=== PATIENT | female | born 1980 | race Caucasian/White ===

== ENCOUNTER 2017-01-09 23:13 | Emergency (ER) | payer MEDICAID, OTHER ==
[2017-01-09 23:25] VITALS: BP 99/49
[2017-01-09] MEDS ORDERED: Lactated Ringers 1,000 ML IV ONE (23:32)
[2017-01-09] MEDS ORDERED: Sodium Chloride 0.9% 10 ML Syringe FLUSH PRN (23:32)
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
[2017-01-10] MEDS ORDERED: Potassium Chloride 10 MEQ in Premix Bag 1 BAG IV SCH ×2 (00:45→02:00)
[2017-01-10] MEDS ORDERED: Potassium Chloride 10 MEQ Tab.ER PO ONE (02:41)
== END 2017-01-10 02:56 | disposition home or self-care (01) ==
LOC: JD.ED 23:13
DX: F10.129 Alcohol abuse with intoxication, unspecified (principal); F17.200 Nicotine dependence, unspecified, uncomplicated
CPT/HCPCS: 36415; 80053; 80306; 81001; 83735; 85025; 87086; 87088; 87186; 93005; 96361; 96365; 99285; A9270; G0480; J3480; J7050; J7120; 99284

== ENCOUNTER 2017-06-17 00:39 | Emergency (ER) | payer MEDICAID ==
[2017-06-17 01:12] VITALS: BP 134/80
--- NOTE | 2017-06-17 01:16 | EDM.PDOC ---
ED HPI GENERAL MEDICAL PROBLEM - General Chief Complaint: Lower Extremity Injury/Pain Stated Complaint: POSS ANKLE INJURY Time Seen by Provider: 06/17/17 01:15 Source of Information: Reports: Patient History Limitations: Reports: No Limitations - History of Present Illness INITIAL COMMENTS - FREE TEXT/NARRATIVE: 37-year-old female attends the ED with an acute inversion injury to her right ankle. These her and her were out dancing and drinking at [employer] this evening when she inadvertently missed 2 stairs down to the dance floor. This resulted in significant inversion injury to her right ankle. She can barely put any weight on the heel to weight-bear. Injury occurred half an hour before arrival in the ED. She denies any other injuries. Radiates up towards her knee however. 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 (see below) (9.) Right Ankle Pain Score (Numeric/FACES): 7 - Related Data Allergies Allergy/AdvReac Type Severity Reaction Status Date / Time No Known Allergies Allergy Verified 06/17/17 01:11 Home Meds: Home Meds Acetaminophen/HYDROcodone [[place] 325-5 MG] 1 tab PO Q6H #5 tablet 06/17/17 [Rx] ClonazePAM [KlonoPIN] 1 mg PO DAILY PRN 06/17/17 [History] Diclofenac Sodium [Voltaren] 75 mg PO DAILY 06/17/17 [History] Orphenadrine [Norflex] 100 mg PO DAILY 06/17/17 [History] Pregabalin [Lyrica] 150 mg PO TID 06/17/17 [History] Past Medical History - Past Health History Medical/Surgical History: Denies Medical/Surgical History Other Musculoskeletal History: cervical spine stenosis Neurological History: Reports: Other (See Below) (Chronic insomnia) Other Hematologic History: stated has some anemia with Social & Family History - Family History Family Medical History: Unobtainable - Tobacco Use Smoking Status *Q: Light Tobacco Smoker Years of Tobacco use: 20 Packs/Tins Daily: 0.5 Used Tobacco, but Quit: No Month Tobacco Last Used: November Second Hand Smoke Exposure: No - Alcohol Use Days Per Week of Alcohol Use: 0 - Recreational Drug Use Recreational Drug Use: No - Living Situation & Occupation Living situation: Reports: Single Occupation: Unemployed Review of Systems - Review of Systems Review Of Systems: See Below Constitutional: Reports: No Symptoms Eyes: Reports: No Symptoms Ears: Reports: No Symptoms Nose: Reports: No Symptoms Mouth/Throat: Reports: No Symptoms Respiratory: Reports: No Symptoms Cardiovascular: Reports: No Symptoms GI/Abdominal: Reports: No Symptoms ED EXAM, GENERAL - Physical Exam Exam: See Below Exam Limited By: No Limitations General Appearance: Alert, WD/WN, Moderate Distress Peripheral Pulses: 2+: Posterior Tibial (L), Posterior Tibial (R), Dorsalis Pedis (L), Dorsalis Pedis (R) Extremities: Other (Examination was mostly confined to her right lower extremity. There is no injury to the knee. There is no injury to the proximal neck of the fibula. Significant pain in her ankle with compression of mid shaft tib-fib. No pain at on compression of the metatarsals or particular the fifth metatarsal head. There is marked swelling of the lateral malleolus and surrounding tissues dorsally. No pain on compression of the medial malleoli and the deltoid ligament.) Neurological: Alert, Oriented, CN II-XII Intact, Normal Cognition Psychiatric: Normal Affect, Normal Mood Skin Exam: Dry, Intact, Normal Color Course - Vital Signs Last Recorded V/S: Last Vital Signs Temp 36.6 C 06/17/17 01:08 Pulse 92 06/17/17 01:08 Resp 16 06/17/17 01:08 BP 134/80 06/17/17 01:08 Pulse Ox 98 06/17/17 01:08 - Orders/Labs/Meds Orders: Active Orders 24 hr Category Date Time Status Ankle Min 3V Rt [CR] Stat Exams 06/17/17 01:15 Taken Tibia Fibula Rt [CR] Stat Exams 06/17/17 01:15 Taken - Radiology Interpretation Free Text/Narrative:: 37-year-old female presents the ED with an acute inversion injury to her right ankle. 2 stairs while at on these going to the dance floor. There is marked swelling of the lateral malleolus and she can barely weight-bear. Plan x-ray of the tib-fib and ankle to be done. - Re-Assessments/Exams Free Text/Narrative Re-Assessment/Exam: 06/17/17 02:00 x-rays of the tib-fib and right ankle are negative for fractures. Patient was placed in an Sergey wrap and will have a stirrup splint applied to the ankle. She found this actually quite comfortable and was able to navigate fairly well without crutches. She will use Aleve 2 tablets every 8 hours for pain relief. Did provide her with 5 tablets of Percocet through the ED 1 tablet every 6 hours as needed for pain relief not controlled by leave alone. Up with personal care physician if not completely back to normal in 14 days time. Departure - Departure Time of Disposition: 01:51 Disposition: Home, Self-Care 01 Condition: Fair Clinical Impression: Sprain of right ankle Qualifiers: Encounter type: initial encounter Involved ligament of ankle: calcaneofibular ligament Qualified Code(s): S93.411A - Sprain of calcaneofibular ligament of right ankle, initial encounter - Discharge Information Prescriptions: Acetaminophen/HYDROcodone [[place] 325-5 MG] 1 tab PO Q6H #5 tablet Instructions: Ankle Sprain, [id number] Referrals: Nakita Stovall NP [Primary Care Provider] - Forms: ED Department Discharge Additional Instructions: Evaluation in the emergency room tonight in regards to acute inversion injury to her right ankle at occurred when you missed a stair or 2. Significant swelling over the lateral malleolus appreciated due to ligament strain. X-rays of the tib-fib and ankle reveal no broken bones. Ankle ligaments are stable indicating no tear of the ligaments but overstretching of the ligaments. Treatment is Sergey wrap on during the day and off at night although I would leave it on all night tonight. Ideally ice pack to the area for one half hour out of every 4 hours for 2 days to reduce the swelling After this may put heat on the area. Suggest Motrin 600 mg every 6 hours or Aleve 2 tablets every 8 hours to reduce pain and inflammation. May use [place] tablet 5 mg 1 tablet every 6 hours as necessary for pain relief not controlled by Motrin alone. Just use of Aircast splint to aid ambulation for the next 10-12 days. Follow-up with personal physician if not completely back to normal in 14 days time - My Orders Last 24 Hours: My Active Orders 06/17/17 01:15 Ankle Min 3V Rt [CR] Stat Tibia Fibula Rt [CR] Stat - Assessment/Plan Last 24 Hours: My Active Orders 06/17/17 01:15 Ankle Min 3V Rt [CR] Stat Tibia Fibula Rt [CR] Stat
[2017-06-17] MEDS ORDERED: Acetaminophen/HYDROcodone 325-5 MG Tab ONE (01:54)
--- NOTE | 2017-06-18 08:57 | CR ---
Right ankle: Four views of the right ankle were obtained. Comparison: No prior ankle study. Ankle mortise is symmetric. No fracture, dislocation or other bony abnormality is identified. Impression: 1. No abnormality is identified on right ankle exam. Diagnostic code #1
--- NOTE | 2017-06-18 12:16 | CR ---
Right tibia and fibula: AP and lateral views of the right tibia and fibula were obtained. Comparison: No previous study. No fracture or other abnormality is seen. Impression: 1. No abnormality is identified on two-view right tibia and fibula study. Diagnostic code #1
== END 2017-06-17 02:23 | disposition home or self-care (01) ==
LOC: JD.ED 00:39
DX: S93.411A Sprain of calcaneofibular ligament of right ankle, initial encounter (principal); F17.210 Nicotine dependence, cigarettes, uncomplicated; Z79.899 Other long term (current) drug therapy; X50.0XXA Overexertion from strenuous movement or load, initial encounter
CPT/HCPCS: 73590; 73610; 99283; A9270

== ENCOUNTER 2019-09-27 20:14 | Emergency (ER) | payer SELFPAY ==
[2019-09-27 20:23] VITALS: BP 143/92; PULSE 63
[2019-09-27] MEDS ORDERED: Sodium Chloride 0.9% 10 ML Syringe FLUSH PRN (20:23)
[2019-09-27] MEDS ORDERED: Ketorolac 15 MG/ML SDV IVPUSH ONE (20:23)
--- NOTE | 2019-09-27 20:25 | EDM.PDOC ---
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 Patient reports that symptoms started days ago and progressively worsened since. Patient reports that this reminds her of her previous episode of hemorrhagic cyst or ectopic . No nausea no vomiting no fever no chills no shortness of breath. Patient reports her LMP was in July of this year Left Lower Pelvic Pain Score (Numeric/FACES): 10 - Related Data Allergies Allergy/AdvReac Type Severity Reaction Status Date / Time No Known Allergies Allergy Verified 09/27/19 20:19 Home Meds: Home Meds . [No Known Home Meds] 09/27/19 [History] Past Medical History - Past Health History Medical/Surgical History: Denies Medical/Surgical History Other Musculoskeletal History: cervical spine stenosis Neurological History: Reports: Other (See Below) (Chronic insomnia) Other Hematologic History: stated has some anemia with Social & Family History - Family History Family Medical History: Unobtainable - Caffeine Use Caffeine Use: Reports: Coffee - Living Situation & Occupation Living situation: Reports: Single Occupation: Unemployed ED ROS GENERAL - Review of Systems Review Of Systems: See Below Constitutional: Denies: Fever, Chills GI/Abdominal: Reports: Abdominal Pain. Denies: Diarrhea, Nausea, Vomiting ED EXAM, GI/ABD - Physical Exam Exam: See Below Exam Limited By: No Limitations General Appearance: Alert, WD/WN, Mild Distress Neck: Normal Inspection, Supple, Non-Tender, Full Range of Motion Respiratory/Chest: No Respiratory Distress, Lungs Clear, Normal Breath Sounds, No Accessory Muscle Use, Chest Non-Tender Cardiovascular: Normal Peripheral Pulses, Regular Rate, Rhythm, No Edema, No Gallop, No JVD, No Murmur, No Rub GI/Abdominal Exam: Normal Bowel Sounds, Soft, Tender (Mild left lower quadrant) Back Exam: Normal Inspection, Full Range of Motion, NT Extremities: Normal Inspection, Normal Range of Motion, Non-Tender, No Pedal Edema, Normal Capillary Refill Neurological: Alert Skin Exam: Warm, Dry, No Rash Course - Vital Signs Last Recorded V/S: Last Vital Signs Temp 97.9 F 09/27/19 20:19 Pulse 63 09/27/19 20:19 Resp 16 09/27/19 20:19 BP 143/92 H 09/27/19 20:19 Pulse Ox 100 09/27/19 20:19 - Orders/Labs/Meds Orders: Active Orders 24 hr Category Date Time Status CULTURE URINE [RM] Stat Lab 09/27/19 20:57 Received UA W/MICROSCOPIC [URIN] Stat Lab 09/27/19 20:57 Results Sodium Chloride 0.9% [Saline Flush] Med 09/27/19 20:23 Active 10 ml FLUSH ASDIRECTED PRN Saline Lock Insert [OM.PC] Stat Oth 09/27/19 20:23 Ordered Medication Orders Sodium Chloride (Saline Flush) 10 ml FLUSH ASDIRECTED PRN PRN Reason: Keep Vein Open Last Admin: 09/27/19 20:37 Dose: 10 ml Labs: Laboratory Tests 09/27/19 09/27/19 09/27/19 Range/Units 20:45 20:45 20:45 WBC 6.56 (3.98-10.04) K/mm3 RBC 3.78 L (3.98-5.22) M/mm3 Hgb 11.5 (11.2-15.7) gm/dl Hct 34.8 (34.1-44.9) % MCV 92.1 D (79.4-94.8) fl MCH 30.4 (25.6-32.2) pg MCHC 33.0 (32.2-35.5) g/dl RDW Std Deviation 43.3 (36.4-46.3) fL Plt Count 365 D (182-369) K/mm3 MPV 9.5 (9.4-12.3) fl Neut % (Auto) 39.9 (34.0-71.1) % Lymph % (Auto) 50.8 (19.3-51.7) % [place] % (Auto) 5.9 (4.7-12.5) % Eos % (Auto) 2.0 (0.7-5.8) Baso % (Auto) 1.2 (0.1-1.2) % Neut # (Auto) 2.62 (1.56-6.13) K/mm3 Lymph # (Auto) 3.33 (1.18-3.74) K/mm3 [place] # (Auto) 0.39 H (0.24-0.36) K/mm3 Eos # (Auto) 0.13 (0.04-0.36) K/mm3 Baso # (Auto) 0.08 (0.01-0.08) K/mm3 Sodium 143 (136-145) mEq/L Potassium 3.9 (3.5-5.1) mEq/L Chloride 106 (98-107) mEq/L Carbon Dioxide 27 (21-32) mEq/L Anion Gap 13.9 (5-15) BUN 12 (7-18) mg/dL Creatinine 0.6 (0.55-1.02) mg/dL Est Cr Clr Drug Dosing 114.91 mL/min Estimated GFR (MDRD) > 60 (>60) mL/min BUN/Creatinine Ratio 20.0 H (14-18) Glucose 102 (74-106) mg/dL Calcium 8.7 (8.5-10.1) mg/dL Total Bilirubin 0.3 (0.2-1.0) mg/dL AST 15 (15-37) U/L ALT 28 (14-59) U/L Alkaline Phosphatase 55 (46-116) U/L Total Protein 6.5 (6.4-8.2) g/dl Albumin 3.9 (3.4-5.0) g/dl Globulin 2.6 gm/dL Albumin/Globulin Ratio 1.5 (1-2) HCG, Qual Negative (NEGATIVE) Urine Color (Yellow) Urine Appearance (Clear) Urine pH (5.0-8.0) Ur Specific [place] (1.005-1.030) Urine Protein (Negative) Urine Glucose (UA) (Negative) Urine Ketones (Negative) Urine Occult Blood (Negative) Urine Nitrite (Negative) Urine Bilirubin (Negative) Urine Urobilinogen (0.2-1.0) Ur Leukocyte Esterase (Negative) 09/27/19 Range/Units 20:57 WBC (3.98-10.04) K/mm3 RBC (3.98-5.22) M/mm3 Hgb (11.2-15.7) gm/dl Hct (34.1-44.9) % MCV (79.4-94.8) fl MCH (25.6-32.2) pg MCHC (32.2-35.5) g/dl RDW Std Deviation (36.4-46.3) fL Plt Count (182-369) K/mm3 MPV (9.4-12.3) fl Neut % (Auto) (34.0-71.1) % Lymph % (Auto) (19.3-51.7) % [place] % (Auto) (4.7-12.5) % Eos % (Auto) (0.7-5.8) Baso % (Auto) (0.1-1.2) % Neut # (Auto) (1.56-6.13) K/mm3 Lymph # (Auto) (1.18-3.74) K/mm3 [place] # (Auto) (0.24-0.36) K/mm3 Eos # (Auto) (0.04-0.36) K/mm3 Baso # (Auto) (0.01-0.08) K/mm3 Sodium (136-145) mEq/L Potassium (3.5-5.1) mEq/L Chloride (98-107) mEq/L Carbon Dioxide (21-32) mEq/L Anion Gap (5-15) BUN (7-18) mg/dL Creatinine (0.55-1.02) mg/dL Est Cr Clr Drug Dosing mL/min Estimated GFR (MDRD) (>60) mL/min BUN/Creatinine Ratio (14-18) Glucose (74-106) mg/dL Calcium (8.5-10.1) mg/dL Total Bilirubin (0.2-1.0) mg/dL AST (15-37) U/L ALT (14-59) U/L Alkaline Phosphatase (46-116) U/L Total Protein (6.4-8.2) g/dl Albumin (3.4-5.0) g/dl Globulin gm/dL Albumin/Globulin Ratio (1-2) HCG, Qual (NEGATIVE) Urine Color Yellow (Yellow) Urine Appearance Clear (Clear) Urine pH 7.0 (5.0-8.0) Ur Specific [place] 1.020 (1.005-1.030) Urine Protein Negative (Negative) Urine Glucose (UA) Negative (Negative) Urine Ketones Negative (Negative) Urine Occult Blood Trace-intact H (Negative) Urine Nitrite Negative (Negative) Urine Bilirubin Negative (Negative) Urine Urobilinogen 0.2 (0.2-1.0) Ur Leukocyte Esterase Trace H (Negative) Meds: Medications Generic Name Dose Route Start Last Admin Trade Name Filibertoq PRN Reason Stop Dose Admin Sodium Chloride 10 ml 09/27/19 20:23 09/27/19 20:37 Saline Flush FLUSH 10 ml ASDIRECTED PRN Administration Keep Vein Open Discontinued Medications Generic Name Dose Route Start Last Admin Trade Name Alexi PRN Reason Stop Dose Admin Ketorolac Tromethamine 10 mg 09/27/19 20:23 09/27/19 20:35 Toradol IVPUSH 09/27/19 20:24 10 mg ONETIME ONE Administration Ondansetron HCl 4 mg 09/27/19 20:40 09/27/19 20:47 Zofran IVPUSH 09/27/19 20:41 4 mg ONETIME ONE Administration - Re-Assessments/Exams Free Text/Narrative Re-Assessment/Exam: 09/27/19 21:26 Evidence of acute process no need for further diagnostic testing at this time we will discharge to long term Departure - Departure Time of Disposition: 21:26 Disposition: Home, Self-Care 01 Clinical Impression: Left lower quadrant pain - Discharge Information Forms: ED Department Discharge Additional Instructions: Home, rest, return as needed for worsening condition Sepsis Event Note - Evaluation Sepsis Screening Result: No Definite Risk - Focused Exam Vital Signs: Vital Signs Temp Pulse Resp BP Pulse Ox 09/27/19 20:19 97.9 F 63 16 143/92 H 100 Date Exam was Performed: 09/27/19 Time Exam was Performed: 21:26 - My Orders Last 24 Hours: My Active Orders 09/27/19 20:23 Sodium Chloride 0.9% [Saline Flush] 10 ml FLUSH ASDIRECTED PRN Saline Lock Insert [OM.PC] Stat 09/27/19 20:57 CULTURE URINE [RM] Stat UA W/MICROSCOPIC [URIN] Stat - Assessment/Plan Last 24 Hours: My Active Orders 09/27/19 20:23 Sodium Chloride 0.9% [Saline Flush] 10 ml FLUSH ASDIRECTED PRN Saline Lock Insert [OM.PC] Stat 09/27/19 20:57 CULTURE URINE [RM] Stat UA W/MICROSCOPIC [URIN] Stat
[2019-09-27] MEDS ORDERED: Ondansetron 4 MG/2 ML SDV IVPUSH ONE (20:40)
== END 2019-09-27 21:40 | disposition home or self-care (01) ==
LOC: JD.ED 20:14
DX: R10.32 Left lower quadrant pain (principal)
CPT/HCPCS: 36415; 80053; 81001; 84703; 85025; 87086; 96374; 96375; 99284; J1885; J2405

== ENCOUNTER 2019-11-02 19:37 | Emergency (ER) | payer MEDICAID, OTHER ==
[2019-11-02 19:46] VITALS: BP 137/83; PULSE 93
--- NOTE | 2019-11-02 19:56 | EDM.PDOC ---
ED HPI GENERAL MEDICAL PROBLEM - General Chief Complaint: Chest Pain Stated Complaint: CHEST PAIN Time Seen by Provider: 11/02/19 19:47 Source of Information: Reports: Patient, RN Notes Reviewed - History of Present Illness INITIAL COMMENTS - FREE TEXT/NARRATIVE: 39-year-old female comes in with chest pain. This started about 30-40 minutes ago sudden onset of pressure type sensation upper mid abdomen radiating to lower chest. She does have history of irritable bowel. She has had a fair amount of abdominal cramping and some intermittent diarrhea earlier today. There has been no nausea or vomiting. She does not feel short of breath. The pressure discomfort now is somewhat better but still present. No radiation to the shoulders arms neck or back. No known history of heart or lung disease other than current smoking history. Right Upper Chest Pain Score (Numeric/FACES): 9 - Related Data Allergies Allergy/AdvReac Type Severity Reaction Status Date / Time No Known Allergies Allergy Verified 11/02/19 19:46 Home Meds: Home Meds . [No Known Home Meds] 09/27/19 [History] Past Medical History - Past Health History Medical/Surgical History: Denies Medical/Surgical History HEENT History: Reports: Hard of Hearing, Other (See Below) Other HEENT History: Retinal Dystrophy. 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: Reports: Ectopic , Endometriosis, Polycystic Ovaries, Musculoskeletal History: Reports: Neck Pain, Chronic Other Musculoskeletal History: cervical spine stenosis Neurological History: Reports: Brain Injury, Concussion, Head Trauma, Neuropathy , Peripheral Psychiatric History: Reports: ADD, ADHD, PTSD, Other (See Below) Other Psychiatric History: Borderline Personality Disorder Endocrine/Metabolic History: Reports: None Other Hematologic History: stated has some anemia with Immunologic History: Reports: None Oncologic (Cancer) History: Reports: None Dermatologic History: Reports: None - Infectious Disease History Infectious Disease History: Reports: None - Past Surgical History HEENT Surgical History: Reports: Tonsillectomy GI Surgical History: Reports: Appendectomy Other GI Surgeries/Procedures: 4 abdominal surgeries for endometriosis and cyst ruptures. Female Surgical History: Reports: Tubal Ligation Social & Family History - Family History Family Medical History: Unobtainable - Tobacco Use Smoking Status *Q: Current Every Day Smoker Years of Tobacco use: 20 Packs/Tins Daily: 1 - Caffeine Use Caffeine Use: Reports: Coffee - Recreational Drug Use Recreational Drug Use: No - Living Situation & Occupation Living situation: Reports: Single Occupation: Unemployed ED ROS GENERAL - Review of Systems Review Of Systems: See Below Constitutional: Denies: Fever, Chills, Diaphoresis HEENT: Denies: Sinus Problem, Throat Pain Respiratory: Denies: Shortness of Breath, Wheezing, Cough Cardiovascular: Reports: Chest Pain GI/Abdominal: Reports: Abdominal Pain (Upper midabdominal and prior intermittent generalized cramping), Diarrhea. Denies: Nausea, Vomiting Musculoskeletal: Denies: Neck Pain, Shoulder Pain, Arm Pain, Back Pain Skin: Reports: No Symptoms Neurological: Reports: Paresthesia ED EXAM, GENERAL - Physical Exam Exam: See Below General Appearance: Alert, Mild Distress Eye Exam: Bilateral Eye: PERRL Head: Atraumatic Neck: Supple Respiratory/Chest: No Respiratory Distress, Lungs Clear, Normal Breath Sounds Cardiovascular: Regular Rate, Rhythm GI/Abdominal: Soft, Non-Tender Extremities: Normal Inspection, Normal Range of Motion Neurological: Alert, Oriented, No Motor/Sensory Deficits Skin Exam: Warm, Dry, Normal Color EKG INTERPRETATION EKG Date: 11/02/19 Rhythm: NSR [place]: Normal P-Wave: Present QRS: Normal ST-T: Normal Course - Vital Signs Last Recorded V/S: Last Vital Signs Temp 98.4 F 11/02/19 19:43 Pulse 93 11/02/19 19:43 Resp 16 11/02/19 19:43 BP 137/83 11/02/19 19:43 Pulse Ox 99 11/02/19 19:43 - Orders/Labs/Meds Orders: Active Orders 24 hr Category Date Time Status EKG 12 Lead [EKG Documentation Completion] [RC] STAT Care 11/02/19 20:06 Active Meds: Medications Discontinued Medications Generic Name Dose Route Start Last Admin Trade Name Freq PRN Reason Stop Dose Admin Al Hydroxide/Mg Hydroxide 30 0 ml 11/02/19 20:06 11/02/19 20:12 ml/ Lidocaine HCl 15 ml PO 11/02/19 20:07 45 ml ONETIME ONE Administration - Re-Assessments/Exams Free Text/Narrative Re-Assessment/Exam: 11/02/19 21:47 EKG was relatively normal with no apparent acute changes, chest x-ray normal. Good relief of discomfort from GI cocktail having some intermittent abdominal discomfort. She does feel much better compared to arrival. Discharge instructions as documented. Departure - Departure Time of Disposition: 21:48 Disposition: Home, Self-Care 01 Condition: Fair Clinical Impression: Atypical chest pain Irritable bowel syndrome Qualifiers: Irritable bowel syndrome type: unspecified Qualified Code(s): K58.9 - Irritable bowel syndrome without diarrhea Instructions: Irritable Bowel Syndrome, Adult Referrals: Nakita Stovall NP [Primary Care Provider] - Forms: ED Department Discharge Additional Instructions: Clear liquids recommended until noon tomorrow and then careful bland diet as tolerated, you may take further Maalox or Mylanta if needed for any further chest discomfort. Follow-up clinic as needed, return to ED as needed if symptoms worsening in any way. Sepsis Event Note - Evaluation Sepsis Screening Result: No Definite Risk - Focused Exam Vital Signs: Vital Signs Temp Pulse Resp BP Pulse Ox 11/02/19 19:43 98.4 F 93 16 137/83 99 Date Exam was Performed: 11/03/19 Time Exam was Performed: 00:48 - My Orders Last 24 Hours: My Active Orders 11/02/19 20:06 EKG 12 Lead [EKG Documentation Completion] [RC] STAT - Assessment/Plan Last 24 Hours: My Active Orders 11/02/19 20:06 EKG 12 Lead [EKG Documentation Completion] [RC] STAT
[2019-11-02] MEDS ORDERED: Alum Hydrox/Mag Hydrox/Simeth 30 ML, Lidocaine 2% 15 ML PO ONE ×2 (20:06)
--- NOTE | 2019-11-02 21:26 | CR ---
Chest: Portable view of the chest was obtained. Comparison: No previous chest x-ray is available. Heart size and mediastinum are within normal limits for portable technique. Lungs are clear with no acute parenchymal change. Bony structures are grossly intact. Impression: 1. Nothing acute is appreciated on portable chest x-ray. Diagnostic code #1 Study was dictated in [place] Standard Time
== END 2019-11-02 21:55 | disposition home or self-care (01) ==
LOC: JD.ED 19:37
DX: K58.9 Irritable bowel syndrome, unspecified (principal); R07.89 Other chest pain; F17.210 Nicotine dependence, cigarettes, uncomplicated; Z90.49 Acquired absence of other specified parts of digestive tract
CPT/HCPCS: 71045; 93005; 99285; A9270; 93010; 99283

== ENCOUNTER 2020-02-04 09:36 | Emergency (ER) | payer MEDICAID ==
[2020-02-04] MEDS: Sodium Chloride 0.9% 1,000 ML IV SCH ×2 (10:04→12:51)
--- NOTE | 2020-02-04 11:45 | EDM.PDOC ---
ED HPI GENERAL MEDICAL PROBLEM - General Chief Complaint: Abdominal Pain Stated Complaint: VOMTING Time Seen by Provider: 02/04/20 09:40 Source of Information: Reports: Patient History Limitations: Reports: No Limitations - History of Present Illness INITIAL COMMENTS - FREE TEXT/NARRATIVE: TRIAGE NOTE -- Has been vomiting for past 4 days and complaining of abdominal pain that is getting progressively worse in the pasat 4 days. No fever or chills. Passed out 2 times last night As above. On my exam the patient notes that nausea and vomiting for about 4 days. There has been some abdominal pain in the lower abdomen. She says she has been seen in clinic in the ER concerned that she may have "an ectopic ." She says that a test has not been done. It is not clear what if anything she has done to alleviate symptoms. She does say that she has been drinking Gatorade without improvement. Denies fever or respiratory symptoms. Risk factors not fully known at this point though the patient is a cigarette smoker. Abdomen Pain Score (Numeric/FACES): 10 - Related Data Allergies Allergy/AdvReac Type Severity Reaction Status Date / Time No Known Allergies Allergy Verified 02/04/20 09:50 Home Meds: Home Meds Lisdexamfetamine [Vyvanse] 30 mg PO DAILY 02/04/20 [History] Loratadine [Claritin] 10 mg PO DAILY 02/04/20 [History] cephALEXin [Keflex] 500 mg PO Q8H #20 cap 02/04/20 [Rx] tiZANidine [Zanaflex] 4 mg PO QPM 02/04/20 [History] Past Medical History - Past Health History Medical/Surgical History: Denies Medical/Surgical History HEENT History: Reports: Hard of Hearing, Other (See Below) Other HEENT History: Retinal Dystrophy. Cardiovascular History: Reports: None Respiratory History: Reports: None Gastrointestinal History: Reports: Irritable Bowel Syndrome [employer] History: Reports: Ectopic , Endometriosis, Polycystic Ovaries, Musculoskeletal History: Reports: Neck Pain, Chronic Other Musculoskeletal History: cervical spine stenosis Neurological History: Reports: Brain Injury, Concussion, Head Trauma, Neuropathy , Peripheral Psychiatric History: Reports: ADD, ADHD, PTSD, Other (See Below) Other Psychiatric History: Borderline Personality Disorder Endocrine/Metabolic History: Reports: None Other Hematologic History: stated has some anemia with Immunologic History: Reports: None Oncologic (Cancer) History: Reports: None Dermatologic History: Reports: None - Infectious Disease History Infectious Disease History: Reports: None - Past Surgical History HEENT Surgical History: Reports: Tonsillectomy GI Surgical History: Reports: Appendectomy Other GI Surgeries/Procedures: 4 abdominal surgeries for endometriosis and cyst ruptures. Female Surgical History: Reports: Tubal Ligation Social & Family History - Family History Family Medical History: Unobtainable - Tobacco Use Smoking Status *Q: Current Every Day Smoker Years of Tobacco use: 20 Packs/Tins Daily: 0.2 - Caffeine Use Caffeine Use: Reports: Coffee - Recreational Drug Use Recreational Drug Use: Yes Drug Use in Last 12 Months: Yes Recreational Drug Type: Reports: Marijuana/Hashish Recreational Drug Use Frequency: Weekly - Living Situation & Occupation Living situation: Reports: Single Occupation: Unemployed ED ROS GENERAL - Review of Systems Review Of Systems: Comprehensive ROS is negative, except as noted in HPI. ED EXAM, GI/ABD - Physical Exam Exam: See Below Exam Limited By: No Limitations General Appearance: Alert, WD/WN, No Apparent Distress (Though initially appearing quite uncomfortable) Eyes: Bilateral: EOMI Ears: Normal External Exam Nose: Normal Inspection Throat/Mouth: Normal Inspection Head: Atraumatic, Normocephalic Neck: Normal Inspection, Supple Respiratory/Chest: No Respiratory Distress, Lungs Clear, Decreased Breath Sounds Cardiovascular: Regular Rate, Rhythm, No Edema GI/Abdominal Exam: Soft, Tender (Mild tenderness in lower abdomen to deep palpation). No: Guarding, Rigid, Rebound Back Exam: Normal Inspection Extremities: Normal Inspection, Non-Tender Neurological: Alert, Oriented, Normal Cognition, No Motor/Sensory Deficits Psychiatric: Other (A bit voluble) Skin Exam: Warm, Dry Course - Vital Signs Last Recorded V/S: Last Vital Signs Temp 36.2 C 02/04/20 09:54 Pulse 69 02/04/20 09:54 Resp 13 02/04/20 09:54 BP 135/85 02/04/20 09:54 Pulse Ox 100 02/04/20 09:54 - Orders/Labs/Meds Orders: Active Orders 24 hr Category Date Time Status CULTURE URINE [RM] Stat Lab 02/04/20 10:04 Received Sodium Chloride 0.9% [Normal Saline] 1,000 ml Med 02/04/20 10:00 Active IV ASDIRECTED Sodium Chloride 0.9% [Normal Saline] 500 ml Med 02/04/20 12:45 Active IV .BOLUS Medication Orders Sodium Chloride (Normal Saline) 1,000 mls @ 150 mls/hr IV ASDIRECTED LOURDES Last Admin: 02/04/20 12:51 Dose: 150 mls/hr Infusion: 02/04/20 12:51 Dose: 150 mls/hr Admin: 02/04/20 10:04 Dose: 150 mls/hr Sodium Chloride (Normal Saline) 500 mls @ 1,000 mls/hr IV .BOLUS LOURDES Labs: Laboratory Tests 02/04/20 02/04/20 02/04/20 Range/Units 09:55 09:55 09:55 WBC 11.28 H (3.98-10.04) K/mm3 RBC 5.52 H (3.98-5.22) M/mm3 Hgb 16.9 H D (11.2-15.7) gm/dl Hct 50.4 H (34.1-44.9) % MCV 91.3 (79.4-94.8) fl MCH 30.6 (25.6-32.2) pg MCHC 33.5 (32.2-35.5) g/dl RDW Std Deviation 44.0 (36.4-46.3) fL Plt Count 355 (182-369) K/mm3 MPV 10.7 (9.4-12.3) fl Neutrophils % (Manual) 67 H (40-60) % Band Neutrophils % 0 (0-10) % Lymphocytes % (Manual) 27 (20-40) % Atypical Lymphs % 0 % Monocytes % (Manual) 6 (2-10) % Eosinophils % (Manual) 0 L (0.7-5.8) % Basophils % (Manual) 0 L (0.1-1.2) Platelet Estimate Adequate RBC Morph Comment Normal Sodium 140 (136-145) mEq/L Potassium 3.4 L (3.5-5.1) mEq/L Chloride 98 (98-107) mEq/L Carbon Dioxide 29 (21-32) mEq/L Anion Gap 16.4 H (5-15) BUN 22 H (7-18) mg/dL Creatinine 0.8 (0.55-1.02) mg/dL Est Cr Clr Drug Dosing 88.94 mL/min Estimated GFR (MDRD) > 60 (>60) mL/min BUN/Creatinine Ratio 27.5 H (14-18) Glucose 118 H (74-106) mg/dL Calcium 9.6 (8.5-10.1) mg/dL Total Bilirubin 0.7 (0.2-1.0) mg/dL AST 16 (15-37) U/L ALT 44 (14-59) U/L Alkaline Phosphatase 67 (46-116) U/L Total Protein 8.6 H (6.4-8.2) g/dl Albumin 4.9 (3.4-5.0) g/dl Globulin 3.7 gm/dL Albumin/Globulin Ratio 1.3 (1-2) Lipase 234 (73-393) U/L Urine Color (Yellow) Urine Appearance (Clear) Urine pH (5.0-8.0) Ur Specific [place] (1.005-1.030) Urine Protein (Negative) Urine Glucose (UA) (Negative) Urine Ketones (Negative) Urine Occult Blood (Negative) Urine Nitrite (Negative) Urine Bilirubin (Negative) Urine Urobilinogen (0.2-1.0) Ur Leukocyte Esterase (Negative) U Hyaline Cast (Auto) (0-5) /lpf Urine RBC (0-5) /hpf Urine WBC (0-5) /hpf Ur Squamous Epith Cells (0-5) /hpf Urine Bacteria (FEW) /hpf Urine Mucus (FEW) /hpf Urine HCG, Qual (NEGATIVE) Urine Opiates Screen (VITVLE=436) Ur Buprenorphine Scrn (CUTOFF=10) Ur Oxycodone Screen (EAJ6CE=343) Urine Methadone Screen (VFQTZN=181) Ur Propoxyphene Screen (VHOSBY=733) Ur Barbiturates Screen (RXIZJH=681) Ur Tricyclics Screen (UUDZZB=742) Ur Phencyclidine Scrn (CUTOFF=25) Ur Amphetamine Screen (KCSYJZ=766) U Methamphetamines Scrn (VRZCBT=669) U Benzodiazepines Scrn (FPXDRA=200) U Cocaine Metab Screen (CKQHZI=009) U Marijuana (THC) Screen (CUTOFF=50) Ethyl Alcohol 0.00 (0.00) gm% 02/04/20 02/04/20 02/04/20 Range/Units 10:04 10:04 10:04 WBC (3.98-10.04) K/mm3 RBC (3.98-5.22) M/mm3 Hgb (11.2-15.7) gm/dl Hct (34.1-44.9) % MCV (79.4-94.8) fl MCH (25.6-32.2) pg MCHC (32.2-35.5) g/dl RDW Std Deviation (36.4-46.3) fL Plt Count (182-369) K/mm3 MPV (9.4-12.3) fl Neutrophils % (Manual) (40-60) % Band Neutrophils % (0-10) % Lymphocytes % (Manual) (20-40) % Atypical Lymphs % % Monocytes % (Manual) (2-10) % Eosinophils % (Manual) (0.7-5.8) % Basophils % (Manual) (0.1-1.2) Platelet Estimate RBC Morph Comment Sodium (136-145) mEq/L Potassium (3.5-5.1) mEq/L Chloride (98-107) mEq/L Carbon Dioxide (21-32) mEq/L Anion Gap (5-15) BUN (7-18) mg/dL Creatinine (0.55-1.02) mg/dL Est Cr Clr Drug Dosing mL/min Estimated GFR (MDRD) (>60) mL/min BUN/Creatinine Ratio (14-18) Glucose (74-106) mg/dL Calcium (8.5-10.1) mg/dL Total Bilirubin (0.2-1.0) mg/dL AST (15-37) U/L ALT (14-59) U/L Alkaline Phosphatase (46-116) U/L Total Protein (6.4-8.2) g/dl Albumin (3.4-5.0) g/dl Globulin gm/dL Albumin/Globulin Ratio (1-2) Lipase (73-393) U/L Urine Color Dark yellow (Yellow) Urine Appearance Clear (Clear) Urine pH 6.0 (5.0-8.0) Ur Specific [place] > or = 1.030 (1.005-1.030) Urine Protein Trace H (Negative) Urine Glucose (UA) Negative (Negative) Urine Ketones Negative (Negative) Urine Occult Blood Trace-intact H (Negative) Urine Nitrite Negative (Negative) Urine Bilirubin 1+ H (Negative) Urine Urobilinogen 1.0 (0.2-1.0) Ur Leukocyte Esterase Trace H (Negative) U Hyaline Cast (Auto) 0-5 (0-5) /lpf Urine RBC 5-10 H (0-5) /hpf Urine WBC 10-20 H (0-5) /hpf Ur Squamous Epith Cells 5-10 H (0-5) /hpf Urine Bacteria Moderate H (FEW) /hpf Urine Mucus Few (FEW) /hpf Urine HCG, Qual Negative (NEGATIVE) Urine Opiates Screen Negative (CHTFKP=867) Ur Buprenorphine Scrn Negative (CUTOFF=10) Ur Oxycodone Screen Negative (KSP1QU=192) Urine Methadone Screen Negative (JVYNEQ=735) Ur Propoxyphene Screen Negative (LCPYHK=798) Ur Barbiturates Screen Negative (MJTFHO=659) Ur Tricyclics Screen Negative (VMQWRV=729) Ur Phencyclidine Scrn Negative (CUTOFF=25) Ur Amphetamine Screen Presumptive positive H (OMICKR=098) U Methamphetamines Scrn Presumptive positive H (LRMUWW=717) U Benzodiazepines Scrn Negative (ABHARO=238) U Cocaine Metab Screen Negative (SRPUKY=988) U Marijuana (THC) Screen Presumptive positive H (CUTOFF=50) Ethyl Alcohol (0.00) gm% Meds: Medications Generic Name Dose Route Start Last Admin Trade Name Freq PRN Reason Stop Dose Admin Sodium Chloride 1,000 mls @ 150 mls/hr 02/04/20 10:00 02/04/20 12:51 Normal Saline IV 150 mls/hr ASDIRECTED LOURDES Administration Sodium Chloride 500 mls @ 1,000 mls/hr 02/04/20 12:45 Normal Saline IV .BOLUS LOURDES Discontinued Medications Generic Name Dose Route Start Last Admin Trade Name Freq PRN Reason Stop Dose Admin Ceftriaxone Sodium 1 gm/ 100 mls @ 200 mls/hr 02/04/20 12:33 02/04/20 12:38 Sodium Chloride IV 02/04/20 13:02 200 mls/hr ONETIME ONE Administration Ondansetron HCl 4 mg 02/04/20 12:46 02/04/20 12:50 Zofran IVPUSH 02/04/20 12:47 4 mg ONETIME ONE Administration Ondansetron HCl Confirm 02/04/20 12:47 Zofran Odt Administered 02/04/20 12:48 Dose 4 mg .ROUTE .STK-MED ONE - Re-Assessments/Exams Free Text/Narrative Re-Assessment/Exam: 02/04/20 13:20 Patient is come in with a primary complaint of vomiting. There is also been abdominal discomfort. test is negative. There is evidence of dehydration. She is responded well to IV fluids as well as Zofran. Abdominal discomfort has resolved. Vomiting is resolved. She is requesting clear liquids and is tolerating them. There is evidence of a urinary tract infection and she is being treated with Rocephin in the emergency department and will be discharged on antibiotic additionally. She is positive for amphetamines, methamphetamine as well as marijuana. She says that she is being treated for ADHD with methamphetamine as well as Adderall. Departure - Departure Time of Disposition: 13:23 Disposition: Home, Self-Care 01 Condition: Good Clinical Impression: Abdominal discomfort, Polysubstance abuse, Tobacco abuse Nausea and vomiting Qualifiers: Vomiting type: unspecified Vomiting Intractability: non-intractable Qualified Code(s): R11.2 - Nausea with vomiting, unspecified Urinary tract infection Qualifiers: Urinary tract infection type: site unspecified Hematuria presence: without hematuria Qualified Code(s): N39.0 - Urinary tract infection, site not specified - Discharge Information Prescriptions: cephALEXin [Keflex] 500 mg PO Q8H #20 cap Referrals: Nakita Stovall NP [Primary Care Provider] - Forms: ED Department Discharge Additional Instructions: You have been seen for nausea and vomiting. It has been going on long enough that you have become dehydrated. Your nausea and vomiting have resolved and the dehydration has been treated with IV fluids. There is evidence of urinary tract infection and you have received Rocephin in the emergency department for this and you will be discharged on a similar antibiotic to take for the next 7 days which is Keflex. Recommend close follow-up with your primary. Call this afternoon for an appointment and be seen no later than Sunday, February 08. Return to ER for fever patrizia symptoms of acute illness or any other concern. Sepsis Event Note - Evaluation Sepsis Screening Result: No Definite Risk - Focused Exam Vital Signs: Vital Signs Temp Pulse Resp BP Pulse Ox 02/04/20 09:54 36.2 C 69 13 135/85 100 Date Exam was Performed: 02/04/20 Time Exam was Performed: 13: - My Orders Last 24 Hours: My Active Orders 02/04/20 10:00 Sodium Chloride 0.9% [Normal Saline] 1,000 ml IV ASDIRECTED 02/04/20 10:04 CULTURE URINE [RM] Stat 02/04/20 12:45 Sodium Chloride 0.9% [Normal Saline] 500 ml IV .BOLUS - Assessment/Plan Last 24 Hours: My Active Orders 02/04/20 10:00 Sodium Chloride 0.9% [Normal Saline] 1,000 ml IV ASDIRECTED 02/04/20 10:04 CULTURE URINE [RM] Stat 02/04/20 12:45 Sodium Chloride 0.9% [Normal Saline] 500 ml IV .BOLUS
[2020-02-04] MEDS ORDERED: cefTRIAXone 1 GM in Sodium Chloride 0.9% 100 ML IV ONE (12:33)
[2020-02-04] MEDS ORDERED: Sodium Chloride 0.9% 500 ML IV SCH (12:45)
[2020-02-04] MEDS ORDERED: Ondansetron 4 MG/2 ML SDV IVPUSH ONE (12:46)
[2020-02-04] MEDS ORDERED: Ondansetron 4 MG Tab.DIS ONE (12:47)
[2020-02-04 13:56] VITALS: BP 120/76; PULSE 70
== END 2020-02-04 13:56 | disposition home or self-care (01) ==
LOC: JD.ED 09:36
DX: N39.0 Urinary tract infection, site not specified (principal); R11.2 Nausea with vomiting, unspecified; F19.10 Other psychoactive substance abuse, uncomplicated; F17.210 Nicotine dependence, cigarettes, uncomplicated; F90.9 Attention-deficit hyperactivity disorder, unspecified type; Z90.49 Acquired absence of other specified parts of digestive tract; Z98.51 Tubal ligation status; Z98.890 Other specified postprocedural states; Z79.899 Other long term (current) drug therapy
CPT/HCPCS: 36415; 80053; 80306; 80307; 81001; 81025; 83690; 85007; 85027; 87086; 87088; 87186; 96361; 96365; 96375; 99284; J0696; J2405; J7030; J7040; J7050

== ENCOUNTER 2022-02-21 07:43 | Emergency (ER) | payer MEDICAID ==
[2022-02-21 08:13] VITALS: BP 127/95; PULSE 100
[2022-02-21] MEDS ORDERED: Sodium Chloride 0.9% 10 ML Syringe FLUSH PRN ×2 (08:28→10:32)
[2022-02-21] MEDS ORDERED: Ketorolac 30 MG/ML SDV IVPUSH ONE (08:33)
[2022-02-21] MEDS ORDERED: Diatrizoate Meglumine/Diatrizoate Sodium 37% 120 ML Bottle PO ONE (10:40)
[2022-02-21] MEDS ORDERED: Iopamidol 612 MG/ML 100 ML Bottle IVPUSH ONE (10:40)
[2022-02-21] MEDS ORDERED: Magnesium Citrate Solution 296 ML Bottle PO ONE (11:59)
== END 2022-02-21 12:25 | disposition home or self-care (01) ==
LOC: JD.ED 07:43
DX: K59.01 Slow transit constipation (principal); F17.210 Nicotine dependence, cigarettes, uncomplicated; F90.9 Attention-deficit hyperactivity disorder, unspecified type; Z88.8 Allergy status to other drugs, medicaments and biological substances; Z79.899 Other long term (current) drug therapy
CPT/HCPCS: 36415; 74177; 80053; 81003; 81025; 83690; 83735; 85025; 86140; 96374; 99284; A9270; J1885; J3490; Q9963; Q9967; 99283

== ENCOUNTER 2022-04-06 17:34 | Emergency (ER) | payer MEDICAID ==
[2022-04-06 17:48] VITALS: BP 124/71; PULSE 72
[2022-04-06] MEDS ORDERED: Ketorolac 60 MG/2 ML SDV IM ONE (18:32)
[2022-04-06] MEDS ORDERED: Cyclobenzaprine 10 MG Tab PO ONE (18:32)
== END 2022-04-06 20:15 | disposition home or self-care (01) ==
LOC: JD.ED 17:34
DX: S90.01XA Contusion of right ankle, initial encounter (principal); S60.221A Contusion of right hand, initial encounter; Z88.8 Allergy status to other drugs, medicaments and biological substances; Z87.891 Personal history of nicotine dependence; W18.39XA Other fall on same level, initial encounter
CPT/HCPCS: 72040; 73120; 73610; 96372; 99283; A9270; J1885; 99282

== ENCOUNTER 2022-06-03 10:14 | Emergency (ER) | payer MEDICAID | END 2022-06-03 13:00 | LOC: JD.ED 10:14 | DX: Z53.21 Procedure and treatment not carried out due to patient leaving prior to being seen by health care provider (principal) ==